=== PATIENT | female | born 1950 | race Caucasian/White ===

== ENCOUNTER 2019-02-21 17:22 | Inpatient (IN) | payer MEDICARE ==
[2019-02-21] MEDS ORDERED: Sodium Chloride 0.9% 1,000 ML IV STA (18:17)
--- NOTE | 2019-02-21 18:52 | ED PDOC ---
HPI: General Adult Time Seen by Provider: 02/21/19 18:06 Chief Complaint (Nursing): Dizziness/Lightheaded Chief Complaint (Provider): Dizziness/Lightheaded History Per: Patient History/Exam Limitations: no limitations Onset/Duration Of Symptoms: Days (x 1 month) Current Symptoms Are (Timing): Still Present Additional Complaint(s): 68 year old female with a history of lupus and HTN presents to the ED for evaluation of one month of dizziness associated with nausea, vomiting, left sided headache and left sided ear pain. Patient was seen at [facility] earlier this month and had a workup, including cardiac tests, that was negative. Additionally, states that she stopped taking her anti-depressants without consulting her doctor last week because it was not helping her. Denies head injury, focal weakness, chest pain and palpitations. PMD: Dr. Rojas Past Medical History Reviewed: Historical Data, Nursing Documentation, Vital Signs Vital Signs: Last Vital Signs Temp 98.5 F 02/21/19 17:25 Pulse 82 02/21/19 17:25 Resp 16 02/21/19 17:25 BP 149/96 H 02/21/19 17:25 Pulse Ox 97 02/21/19 17:25 Primary Care Provider: Shaik Rojas - Medical History PMH: Depression, Gall Bladder Disease, HTN, Hypercholesterolemia, Hypothyroidism, Peripheral Edema, Chronic Kidney Disease (SMALL KIDNEY CYST), Sleep Apnea (QUESTIONABLE TEST RESULTS NOT AVAILABLE YET) - Surgical History Surgical History: Cholecystectomy, Endoscopy - Family History Family History: States: Unknown Family Hx - Home Medications Home Medications: Ambulatory Orders Medication Instructions Recorded Pantoprazole Sodium [Protonix] 40 mg PO DAILY 04/21/15 LORazepam [Ativan] 1 mg PO DAILY PRN 02/21/19 Levothyroxine [Synthroid] 75 mcg PO DAILY 02/21/19 Losartan/Hydrochlorothiazide 1 tab PO DAILY 02/21/19 [Losartan-Hctz 100-12.5 mg Tab] Meclizine [Meclizine*] 25 mg PO Q12 PRN 02/21/19 Ondansetron [Zofran Tab] 4 mg PO Q8 PRN 02/21/19 Pregabalin [Lyrica] 25 mg PO HS PRN 02/21/19 buPROPion XL [Wellbutrin XL] 150 mg PO DAILY 02/21/19 traMADol [Ultram] 50 mg PO Q6 PRN 02/21/19 - Allergies Allergies/Adverse Reactions: Allergies Allergy/AdvReac Type Severity Reaction Status Date / Time No Known Allergies Allergy Verified 02/21/19 17:26 Review of Systems ROS Statement: Except As Marked, All Systems Reviewed And Found Negative ENT: Positive for: Ear Pain (left) Cardiovascular: Negative for: Chest Pain, Palpitations Gastrointestinal: Positive for: Nausea, Vomiting Neurological: Positive for: Headache, Dizziness. Negative for: Weakness Physical Exam - Reviewed Nursing Documentation Reviewed: Yes Vital Signs Reviewed: Yes - Physical Exam Appears: Positive for: No Acute Distress Head Exam: Positive for: ATRAUMATIC, NORMAL INSPECTION, NORMOCEPHALIC Skin: Positive for: Normal Color, Warm, Dry Eye Exam: Positive for: EOMI, Normal appearance, PERRL ENT: Positive for: Normal ENT Inspection, TM Is/Are (clear) Neck: Positive for: Normal, Painless ROM, Supple Cardiovascular/Chest: Positive for: Regular Rate, Rhythm. Negative for: Murmur Respiratory: Positive for: Normal Breath Sounds. Negative for: Respiratory Distress Gastrointestinal/Abdominal: Positive for: Normal Exam, Soft. Negative for: Tenderness Back: Positive for: Normal Inspection. Negative for: L CVA Tenderness, R CVA Tenderness Extremity: Positive for: Normal ROM (x 4). Negative for: Deformity Neurological/Psych: Positive for: Awake, Alert, Normal Tone, Symmetric/Intact Strength, Oriented (x 3). Negative for: Motor/Sensory Deficits, Facial Droop - ECG O2 Sat by Pulse Oximetry: 97 (RA) Pulse Ox Interpretation: Normal Medical Decision Making Medical Decision Makin:17 Impression: headache and dizziness Initial Plan: --Head CT --CMP --CBC --Glucose POC --EKG --Zofran 4 mg IV --NS IV 1,000 mls Scribe Attestation: Documented by Nisha Hill, acting as a scribe for Barrington Julian MD. Provider Scribe Attestation: All medical record entries made by the Scribe were at my direction and personally dictated by me. I have reviewed the chart and agree that the record accurately reflects my personal performance of the history, physical exam, medical decision making, and the department course for this patient. I have also personally directed, reviewed, and agree with the discharge instructions and disposition. Disposition - Clinical Impression Clinical Impression: Dizziness - Patient ED Disposition Is Patient to be Admitted: Transfer of Care - Disposition Disposition: Transfer of Care Disposition Time: 19:00 Condition: FAIR Forms: [employer] (Bangladeshi) Patient Signed Over To: Luiza Cruz (Pending CT labs and reeval)
[2019-02-21 18:57] LABS: BASO % 0.5 % (0.0-2.0); EOS # 0.1 K/uL (0.0-0.7); EOS % 1.8 % (0.0-4.0); HEMOGLOBIN 14.4 g/dL (12.0-16.0); LYMPH # 1.5 K/uL (1.0-4.3); LYMPH % 21.3 % (20.0-40.0); MEAN CELL VOLUME 84.6 fl (81.0-99.0); MEAN CORPUSCULAR HEMOGLOBIN 28.6 pg (27.0-31.0); MEAN CORPUSCULAR HGB CONC 33.9 g/dL (33.0-37.0); MEAN PLATELET VOLUME 6.9 fl (7.2-11.7); MONO # 0.4 K/uL (0.0-0.8); MONO % 6.3 % (0.0-10.0); NEUT # 4.9 K/uL (1.8-7.0); NEUT % 70.1 % (50.0-75.0); RBC 5.04 Mil/uL (3.80-5.20); RED CELL DISTRIBUTION WIDTH 13.1 % (11.5-14.5)
[2019-02-21 19:12] LABS: ALB/GLOB RATIO 1.2 (1.0-2.1); ALBUMIN 4.4 g/dL (3.5-5.0); BLOOD UREA NITROGEN 15 mg/dl (7-17); CALCIUM 9.5 mg/dL (8.4-10.2); GFR NON-AFRICAN AMERICAN > 60
[2019-02-21 19:24] LABS: ALT/SGPT 31 U/L (9-52); AST/SGOT 37 U/L (14-36)
--- NOTE | 2019-02-21 19:31 | ED PDOC ---
- Laboratory Results Result Diagrams: 02/21/19 18:52 02/21/19 18:52 Lab Results: Total Bilirubin 0.7 mg/dl (0.2-1.3) 02/21/19 18:52 AST 37 U/L (14-36) H 02/21/19 18:52 ALT 31 U/L (9-52) 02/21/19 18:52 Alkaline Phosphatase 124 U/L (38-126) 02/21/19 18:52 Total Protein 8.1 G/DL (6.3-8.2) 02/21/19 18:52 Albumin 4.4 g/dL (3.5-5.0) 02/21/19 18:52 Globulin 3.6 gm/dL (2.2-3.9) 02/21/19 18:52 Albumin/Globulin Ratio 1.2 (1.0-2.1) 02/21/19 18:52 - ECG O2 Sat by Pulse Oximetry: 97 (RA) Pulse Ox Interpretation: Normal - Progress Re-evaluation Time: 20:26 Condition: Re-examined, Improved Medical Decision Making Medical Decision Makin:05 Patient signed out to this provider by Dr. Julian pending CT Head, re-evaluation and final disposition. 19:57 FINDINGS: BRAIN: No acute intraparenchymal hemorrhage. No mass lesion. No CT evidence for acute territorial infarct. No midline shift or extra-axial collections. There is mild brain atrophy. VENTRICLES: No hydrocephalus. ORBITS: The orbits are unremarkable. SINUSES AND MASTOIDS: The paranasal sinuses and mastoid air cells are clear. BONES: No fracture. SOFT TISSUES: Unremarkable. IMPRESSION: No acute intracranial abnormality. Mild brain atrophy. Scribe Attestation: Documented by Nisha Hill, acting as a scribe for Luiza Cruz MD. Provider Scribe Attestation: All medical record entries made by the Scribe were at my direction and personally dictated by me. I have reviewed the chart and agree that the record accurately reflects my personal performance of the history, physical exam, medical decision making, and the department course for this patient. I have also personally directed, reviewed, and agree with the discharge instructions and disposition. Disposition Doctor Will See Patient In The: Office Counseled Patient/Family Regarding: Studies Performed, Diagnosis, Need For Follo wup - Clinical Impression Clinical Impression: Dizziness - POA Present On Arrival: None - Disposition Referrals: Donaldo Lopez MD [Medical Doctor] - Disposition: Routine/Home Disposition Time: 20:26 Condition: GOOD Additional Instructions: ANTONIO MICHAEL, thank you for letting us take care of you today. Your provider was Luiza Cruz MD and you were treated for DIZZINESS. The emergency medical care you received today was directed at your acute symptoms. If you were pre scribed any medication, please fill it and take as directed. It may take several days for your symptoms to resolve. Return to the Emergency Department if your symptoms worsen, do not improve, or if you have any other problems. Please contact your doctor or call one of the physicians/clinics you have been referred to that are listed on the Patient Visit Information form that is included in your discharge packet. Bring any paperwork you were given at discharge with you along with any medications you are taking to your follow up visit. Our treatment cannot replace ongoing medical care by a primary care provider outside of the emergency department. Thank you for allowing the [facility] team to be part of your care today. If you had an X-Ray or CT scan: A Radiologist will review the ED reading if any change in treatment is needed we will contact you. If you had a blood, urine, or wound culture: It will take several days for the results, if any change in treatment is needed we will contact you. Instructions: Dizziness, Nonvertigo, (DC) Forms: [employer] (Filipino)
[2019-02-21] MEDS ORDERED: Dextrose 5%/0.45% NS 1,000 ML IV SCH (23:15)
[2019-02-22] MEDS: Levothyroxine 75 MCG TAB PO SCH (06:45)
[2019-02-22] MEDS ORDERED: Gadodiamide 287 MG/ML VIAL (15ML) IV ONE (08:13)
[2019-02-22] MEDS: Pantoprazole 40 mg EC Tab PO SCH (08:14)
--- NOTE | 2019-02-22 08:53 | CT ---
Date of service: 02/21/2019 PROCEDURE: CT HEAD WITHOUT CONTRAST. HISTORY: r/o bleed COMPARISON: 08/04/2010 TECHNIQUE: Axial computed tomography images were obtained through the head/brain without intravenous contrast. Radiation dose: Total exam DLP = 842.81 mGy-cm. This CT exam was performed using one or more of the following dose reduction techniques: Automated exposure control, adjustment of the mA and/or kV according to patient size, and/or use of iterative reconstruction technique. FINDINGS: HEMORRHAGE: No intracranial hemorrhage. BRAIN: No mass effect or edema. Minimal age-appropriate atrophy. No white matter ischemic change. No evidence of acute infarct. VENTRICLES: Unremarkable. No hydrocephalus. CALVARIUM: Unremarkable. PARANASAL SINUSES: Unremarkable as visualized. No significant inflammatory changes. MASTOID AIR CELLS: Unremarkable as visualized. No inflammatory changes. OTHER FINDINGS: None. IMPRESSION: No intracranial mass, hemorrhage or evidence of acute infarct. Mild age-appropriate atrophy. The preliminary findings for this examination were reported by [facility] at 7:52 p.m. on 02/21/2019. There is concurrence of this report with the preliminary findings.
[2019-02-22] MEDS ORDERED: Patient's Own Med (Losartan/Hydrochlorothiazide [Losartan-Hctz 100-12.5 Mg Tab] 1 TAB) PO SCH (09:00)
--- NOTE | 2019-02-22 10:35 | MRI ---
Date of service: 02/22/2019 PROCEDURE: MRI BRAIN WITH AND WITHOUT CONTRAST HISTORY: vertigo COMPARISON: None available. TECHNIQUE: Multiplanar, multisequence MR images of the brain were obtained with and without intravenous contrast enhancement. 15 cc of Omniscan FINDINGS: HEMORRHAGE: None DWI: No evidence of an acute or early subacute infarction. BRAIN PARENCHYMA: No mass,mass effect or edema. No atrophy or chronic microvascular ischemic changes. ENHANCEMENT: No abnormal intracranial enhancement. VENTRICLES: Unremarkable. No hydrocephalus. CRANIUM: Unremarkable. ORBITS: Grossly unremarkable. PARANASAL SINUSES/MASTOIDS: Clear VASCULAR SYSTEM: Skull base flow voids intact. OTHER FINDINGS: None . IMPRESSION: Unremarkable pre and post contrast enhanced MRI of the brain.
--- NOTE | 2019-02-22 14:39 | HP ---
HISTORY OF PRESENT ILLNESS: Ms. Dodge is a 68-year-old female who was admitted via the emergency room because of intractable dizziness and unsteadiness of gait with pain in the left ear for the past several days. She indicates that she has been seen earlier in the [facility] for similar condition including having tests for her heart and all workup was nonrevealing, but symptoms worsened yesterday and she came to the emergency room. She has a history of anxiety with depression and hypothyroidism and has been on tramadol for chronic pain. FAMILY HISTORY: Unremarkable. SOCIAL HISTORY: She does not drink or smoke, lives at home by herself, but has a supportive son. PHYSICAL EXAMINATION: GENERAL: The patient is alert, oriented, feels very dizzy and unable to stand. VITAL SIGNS: Blood pressure 149/96, respiratory rate 16, afebrile, O2 sat 97% on room air, pulse 82. HEENT: Pupils equally reactive to light and accommodation. Mouth shows fair hygiene. NECK: JVP flat. LUNGS: Clear. HEART: Regular. No murmurs or gallops. ABDOMEN: Soft, nontender, no organomegaly. EXTREMITIES: Show no edema or cyanosis. CENTRAL NERVOUS SYSTEM: Remarkable for the patient not being able to stand or walk because of dizziness and complained of severe dizziness and left ear pain. LABORATORY DATA: Reviewed and is unremarkable including CT scan of the brain that is nonrevealing and EKG, official report is pending, but read by me is remarkable for normal sinus rhythm, nonspecific ST-T changes. IMPRESSION: Intractable dizziness (vertigo), one has to rule out central nervous system pathology; left ear discomfort, rule out Meniere's disease. PLAN: Neurology and Ears, Nose, and Throat evaluation. Further therapy will depend on findings. Pedro Donovan MD
[2019-02-22] MEDS: Enoxaparin 40 mg Syringe SC SCH (16:34)
--- NOTE | 2019-02-22 17:34 | CARD ---
APPROVED REPORT Date of service: 02/21/2019 EKG Measurement Heart [id number] <Conclusion> Normal sinus rhythm Nonspecific ST and T wave abnormality Abnormal ECG
[2019-02-22] MEDS ORDERED: Apap-Butalbital-Caffeine 325-50-40mg Tab PO SCH (22:00)
--- NOTE | 2019-02-23 00:08 | CP.PCM.CON ---
History of Present Illness - History of Present Illness History of Present Illness: Neurology consult called by Dr. high Valorie Dodge is a 68 yr old woman who presents wtih severe nausea, vomiting vertigo and malaise for more than 1 month. On exam: Bilateral, upward nystagmus otherwise normal neuro exam Past Patient History - Past Medical History & Family History Past Medical History?: Yes - Past Social History Smoking Status: Never Smoked - CARDIAC Hx Hypercholesterolemia: Yes Hx Hypertension: Yes Hx Peripheral Edema: Yes - PULMONARY Hx Sleep Apnea: Yes (QUESTIONABLE TEST RESULTS NOT AVAILABLE YET) - NEUROLOGICAL Hx Neurological Disorder: Yes Hx Vertigo: Yes (2008) - HEENT Hx HEENT Problems: No - RENAL Hx Chronic Kidney Disease: Yes (SMALL KIDNEY CYST) - ENDOCRINE/METABOLIC Hx Hypothyroidism: Yes - HEMATOLOGICAL/ONCOLOGICAL Hx AIDS: No Hx Human Immunodeficiency Virus (HIV): No - INTEGUMENTARY Hx Dermatological Problems: No - MUSCULOSKELETAL/RHEUMATOLOGICAL Hx Falls: No - GASTROINTESTINAL Hx Gall Bladder Disease: Yes - GENITOURINARY/GYNECOLOGICAL Hx Genitourinary Disorders: Yes Hx Incontinence: Yes - PSYCHIATRIC Hx Substance Use: No - SURGICAL HISTORY Hx Cholecystectomy: Yes - ANESTHESIA Hx Anesthesia: Yes Hx Anesthesia Reactions: No Hx Malignant Hyperthermia: No Meds Allergies/Adverse Reactions: Allergies Allergy/AdvReac Type Severity Reaction Status Date / Time No Known Allergies Allergy Verified 02/21/19 17:26 - Medications Medications: Current Medications Acetaminophen/Butalbital/Caffeine (Fioricet) 1 tab PO Q6 PRN PRN Reason: Headache Enoxaparin Sodium (Lovenox) 40 mg SC DAILY [facility]; Protocol Last Admin: 02/22/19 16:34 Dose: 40 mg Home Med (Bupropion Xl [Wellbutrin Xl]) 150 mg PO DAILY [facility] Hydrochlorothiazide (Microzide) 12.5 mg PO DAILY [facility] Last Admin: 02/22/19 08:14 Dose: 12.5 mg Hydroxychloroquine Sulfate (Plaquenil) 200 mg PO Q12 [facility]; Protocol Last Admin: 02/22/19 22:22 Dose: 200 mg Levothyroxine Sodium (Synthroid) 75 mcg PO DAILY@0630 [facility] Last Admin: 02/22/19 06:45 Dose: 75 mcg Lorazepam (Ativan) 1 mg PO DAILY PRN PRN Reason: Anxiety Losartan Potassium (Cozaar) 100 mg PO DAILY [facility] Last Admin: 02/22/19 08:14 Dose: 100 mg Meclizine HCl (Antivert) 25 mg PO Q8 [facility] Last Admin: 02/22/19 16:33 Dose: 25 mg Ondansetron HCl (Zofran Tab) 4 mg PO Q6 PRN PRN Reason: Nausea/Vomiting Pantoprazole Sodium (Protonix Ec Tab) 40 mg PO DAILY [facility] Last Admin: 02/22/19 08:14 Dose: 40 mg Pregabalin (Lyrica) 25 mg PO HS PRN PRN Reason: Neuropathic pain Tramadol HCl (Ultram) 50 mg PO Q6 PRN PRN Reason: Pain, severe (8-10) Last Admin: 02/22/19 16:33 Dose: 50 mg Results - Vital Signs Recent Vital Signs: Last Vital Signs Temp 97.5 F L 02/22/19 20:12 Pulse 72 02/22/19 20:12 Resp 20 02/22/19 20:12 BP 128/73 02/22/19 20:12 Pulse Ox 96 02/22/19 20:12 - Labs Result Diagrams: 02/21/19 18:52 02/21/19 18:52 Assessment & Plan - Assessment and Plan (Free Text) Assessment: Patient with most likely viral labyrinthitis. However, with her long history of vertigo, would obtain MRI Brain without yady. Dr Peters Neurology
[2019-02-23] MEDS: Apap-Butalbital-Caffeine 325-50-40mg Tab PO PRN (00:40)
--- NOTE | 2019-02-23 03:34 | CON ---
DATE: 02/22/2019 REASON FOR CONSULTATION: Left ear pain. REQUESTING PHYSICIAN: Pedro Donovan MD HISTORY OF PRESENT ILLNESS: This is a 68-year-old female with one month history of dizziness on and off [id number] lasting hours. The latest episode started on Tuesday and has lasted until today, is constant and moderate in intensity. The patient also has left ear pain, mild for days, constant. There is not hearing loss. No tinnitus. PAST MEDICAL HISTORY: As noted in the chart by me. MEDICATIONS: As noted in the chart by me. PHYSICAL EXAMINATION: HEAD: Atraumatic and normocephalic. FACE: Good facial movements bilaterally. CONSTITUTIONAL: Well-fed, well-nourished. COMMUNICATION: Communicates well and appropriately. EXTERNAL NOSE: No masses, no lesions, no erythema, no edema. EARS: There is intact wax noted. No fluid noted behind both TMs. No ear canal edema or discharge noted and limited exams I could do. ORAL CAVITY AND OROPHARYNX: No masses. No lesions. No erythema. No edema. LIPS AND GUMS: No masses, no lesions, no erythema, and no edema. NECK: Supple. THYROID: No thyromegaly. No goiter. LYMPH NODES: Lymphadenopathy of the neck. The patient has pain on palpation on the TMJ and anterior C-spine on both sides. ASSESSMENT: 1. Cervical radiculopathy. 2. Temporomandibular joint dysfunction. 3. Ear pain. 4. Dizziness. 5. Deviated septum. PLAN: The pain in the neck and TMJ is possibly secondary to the lupus which is causing arthritis in those joints. This is causing shooting pain. The patient describes having headaches with dizziness, most likely the dizziness is not coming from ear. The patient is having headaches with it. However, the patient should follow up in the office for ear wax removal followed by VNG. Jarek Nicholas MD
[2019-02-23] MEDS: Levothyroxine 75 MCG TAB PO SCH (10:31)
[2019-02-23] MEDS: Pantoprazole 40 mg EC Tab PO SCH (10:31)
[2019-02-23] MEDS: Enoxaparin 40 mg Syringe SC SCH (10:32)
--- NOTE | 2019-02-23 10:53 | CP.PCM.PN ---
Subjective - Date & Time of Evaluation Date of Evaluation: 02/23/19 Time of Evaluation: 10:49 - Subjective Subjective: Neuro Follow Up Note: Mrs. Dodge was evaluated this afternoon at bedside. She is still c/o dizziness and ear pain on/off. She has been evaluated by ENT who recommends further outpatient testing. She admitted this morning to Dr. Donovan that she was recently diagnosed with lupus. She will be started on pulse steroids today. Otherwise, ROS unremarkable aside from thew above stated. Objective - Vital Signs/Intake and Output Vital Signs (last 24 hours): Temp Pulse Resp BP Pulse Ox 97.9 F 82 20 134/72 95 02/23/19 08:29 02/23/19 10:32 02/23/19 08:29 02/23/19 10:32 02/23/19 08:29 - Medications Medications: Current Medications Acetaminophen/Butalbital/Caffeine (Fioricet) 1 tab PO Q6 PRN PRN Reason: Headache Last Admin: 02/23/19 00:40 Dose: 1 tab Enoxaparin Sodium (Lovenox) 40 mg SC DAILY [facility]; Protocol Last Admin: 02/23/19 10:32 Dose: 40 mg Home Med (Bupropion Xl [Wellbutrin Xl]) 150 mg PO DAILY [facility] Hydrochlorothiazide (Microzide) 12.5 mg PO DAILY [facility] Last Admin: 02/23/19 10:33 Dose: 12.5 mg Hydroxychloroquine Sulfate (Plaquenil) 200 mg PO Q12 [facility]; Protocol Last Admin: 02/23/19 10:31 Dose: 200 mg Levothyroxine Sodium (Synthroid) 75 mcg PO DAILY@0630 [facility] Last Admin: 02/23/19 10:31 Dose: 75 mcg Lorazepam (Ativan) 1 mg PO DAILY PRN PRN Reason: Anxiety Losartan Potassium (Cozaar) 100 mg PO DAILY [facility] Last Admin: 02/23/19 10:32 Dose: 100 mg Meclizine HCl (Antivert) 25 mg PO Q8 [facility] Last Admin: 02/23/19 10:30 Dose: 25 mg Ondansetron HCl (Zofran Tab) 4 mg PO Q6 PRN PRN Reason: Nausea/Vomiting Pantoprazole Sodium (Protonix Ec Tab) 40 mg PO DAILY [facility] Last Admin: 02/23/19 10:31 Dose: 40 mg Pregabalin (Lyrica) 25 mg PO HS PRN PRN Reason: Neuropathic pain Tramadol HCl (Ultram) 50 mg PO Q6 PRN PRN Reason: Pain, severe (8-10) Last Admin: 02/22/19 16:33 Dose: 50 mg - Labs Labs: 02/21/19 18:52 02/21/19 18:52 - Constitutional Appears: Well, Non-toxic - Head Exam Head Exam: ATRAUMATIC, NORMAL INSPECTION, NORMOCEPHALIC - Eye Exam Eye Exam: EOMI, Normal appearance, PERRL. absent: Nystagmus Pupil Exam: NORMAL ACCOMODATION, PERRL - ENT Exam ENT Exam: Mucous Membranes Moist - Neck Exam Neck Exam: Full ROM, Normal Inspection - Respiratory Exam Respiratory Exam: NORMAL BREATHING PATTERN - Extremities Exam Extremities Exam: Full ROM. absent: Calf Tenderness, Pedal Edema - Neurological Exam Neurological Exam: Alert, Awake, CN II-XII Intact, Oriented x3, Reflexes Normal Neuro motor strength exam: Left Upper Extremity: 5, Right Upper Extremity: 5, Left Lower Extremity: 5, Right Lower Extremity: 5 - Psychiatric Exam Psychiatric exam: Normal Affect, Normal Mood - Skin Skin Exam: Normal Color Assessment and Plan (1) Vertigo Assessment & Plan: Imaging reviewed: -Brain MRI with and without contrast (02/22/19): Unremarkable pre and post contrast enhanced MRI of the brain. -CT Head (02/21/19): No intracranial mass, hemorrhage or evidence of acute infarc t. Mild age-appropriate atrophy. -Pulse steroids per primary team. -Continue Meclizine prn upon d/c. -Follow up outpatient with ENT for recommended VNG study and cerumen removal. -May follow up outpatient with neuro if symptoms don't resolve after further ENT testing. -No further neuro recommendations at this time. Reconsult prn. Thank you for this consultation. Yaquelin Alvarado, DNP, COMPUTER SYSTEMS ADMINISTRATOR d/w Dr. Peters Status: Acute
--- NOTE | 2019-02-23 12:08 | CP.PCM.PN ---
Subjective - Date & Time of Evaluation Date of Evaluation: 02/23/19 Time of Evaluation: 12:11 - Subjective Subjective: STILL C/O DIZZINESS AND L EAR PAIN WITH HEADACHES AND PHOTOPHOBIA NOW OFFERS HX OF NEW ONSET LUPUS Objective - Vital Signs/Intake and Output Vital Signs (last 24 hours): Temp Pulse Resp BP Pulse Ox 97.9 F 82 20 134/72 95 02/23/19 08:29 02/23/19 10:32 02/23/19 08:29 02/23/19 10:32 02/23/19 08:29 - Medications Medications: Current Medications Acetaminophen/Butalbital/Caffeine (Fioricet) 1 tab PO Q6 PRN PRN Reason: Headache Last Admin: 02/23/19 00:40 Dose: 1 tab Bupropion HCl (Wellbutrin Sr 150 Mg) 150 mg PO DAILY [facility] Enoxaparin Sodium (Lovenox) 40 mg SC DAILY [facility]; Protocol Last Admin: 02/23/19 10:32 Dose: 40 mg Hydrochlorothiazide (Microzide) 12.5 mg PO DAILY [facility] Last Admin: 02/23/19 10:33 Dose: 12.5 mg Hydroxychloroquine Sulfate (Plaquenil) 200 mg PO Q12 [facility]; Protocol Last Admin: 02/23/19 10:31 Dose: 200 mg Levothyroxine Sodium (Synthroid) 75 mcg PO DAILY@0630 [facility] Last Admin: 02/23/19 10:31 Dose: 75 mcg Lorazepam (Ativan) 1 mg PO DAILY PRN PRN Reason: Anxiety Losartan Potassium (Cozaar) 100 mg PO DAILY [facility] Last Admin: 02/23/19 10:32 Dose: 100 mg Meclizine HCl (Antivert) 25 mg PO Q8 [facility] Last Admin: 02/23/19 10:30 Dose: 25 mg Ondansetron HCl (Zofran Tab) 4 mg PO Q6 PRN PRN Reason: Nausea/Vomiting Pantoprazole Sodium (Protonix Ec Tab) 40 mg PO DAILY [facility] Last Admin: 02/23/19 10:31 Dose: 40 mg Pregabalin (Lyrica) 25 mg PO HS PRN PRN Reason: Neuropathic pain Tramadol HCl (Ultram) 50 mg PO Q6 PRN PRN Reason: Pain, severe (8-10) Last Admin: 02/22/19 16:33 Dose: 50 mg - Labs Labs: 02/21/19 18:52 02/21/19 18:52 - Constitutional Appears: In Acute Distress - Head Exam Head Exam: ATRAUMATIC, NORMAL INSPECTION, NORMOCEPHALIC - Eye Exam Eye Exam: EOMI, Normal appearance, PERRL Pupil Exam: NORMAL ACCOMODATION, PERRL - ENT Exam ENT Exam: Mucous Membranes Moist, Normal Exam - Neck Exam Neck Exam: Full ROM, Normal Inspection. absent: Lymphadenopathy - Respiratory Exam Respiratory Exam: Clear to Ausculation Bilateral, NORMAL BREATHING PATTERN - Cardiovascular Exam Cardiovascular Exam: REGULAR RHYTHM, +S1, +S2. absent: Murmur - GI/Abdominal Exam GI & Abdominal Exam: Soft, Normal Bowel Sounds. absent: Tenderness - Rectal Exam Rectal Exam: NORMAL INSPECTION - Extremities Exam Extremities Exam: Full ROM, Normal Capillary Refill, Normal Inspection. absent: Joint Swelling, Pedal Edema - Back Exam Back Exam: NORMAL INSPECTION - Neurological Exam Neurological Exam: Alert, Awake, CN II-XII Intact, Normal Gait, Oriented x3 - Psychiatric Exam Psychiatric exam: Normal Affect, Normal Mood - Skin Skin Exam: Dry, Intact, Normal Color, Warm Assessment and Plan - Assessment and Plan (Free Text) Assessment: ACUTE EXAC OF LUPUS INTRACTABLE DIZZINESS MIGRAINE HEADACHES Plan: GIVE IV PULSE STEROID RX FIORECET,PRN PT/OT NEURO AND ENT EVAL APPRECIATED
[2019-02-23] MEDS ORDERED: methylPREDNISolone 1 GM in Sodium Chloride 0.9% 250 ML IV SCH (12:15)
[2019-02-23] MEDS: buPROPion SR 150 MG TABLET PO SCH (13:53)
[2019-02-24] MEDS: Levothyroxine 75 MCG TAB PO SCH (05:56)
[2019-02-24] MEDS: Apap-Butalbital-Caffeine 325-50-40mg Tab PO PRN ×2 (09:49→16:31)
[2019-02-24] MEDS: buPROPion SR 150 MG TABLET PO SCH ×2 (09:50→10:23)
[2019-02-24] MEDS: Enoxaparin 40 mg Syringe SC SCH (09:51)
[2019-02-24] MEDS: Pantoprazole 40 mg EC Tab PO SCH (09:52)
--- NOTE | 2019-02-24 10:54 | CP.PCM.PN ---
Subjective - Date & Time of Evaluation Date of Evaluation: 02/24/19 Time of Evaluation: 10:58 - Subjective Subjective: DIZZINESS/HEADACHES AND UNSTEADY GAIT IMPROVING WITH IV STEROIDS WANTS TO STOP BP MEDS AND WELLBUTRYN WANTS TO SEE A PSYCHIATRIST BECAUSE OF DEPRESSION C/O CONSTIPATION Objective - Vital Signs/Intake and Output Vital Signs (last 24 hours): Temp Pulse Resp BP Pulse Ox 97.7 F 73 18 136/79 95 02/24/19 07:58 02/24/19 07:58 02/24/19 07:58 02/24/19 07:58 02/24/19 07:58 - Medications Medications: Current Medications Acetaminophen/Butalbital/Caffeine (Fioricet) 1 tab PO Q6 PRN PRN Reason: Headache Last Admin: 02/24/19 09:49 Dose: 1 tab Amlodipine Besylate (Norvasc) 2.5 mg PO DAILY [facility] Enoxaparin Sodium (Lovenox) 40 mg SC DAILY [facility]; Protocol Last Admin: 02/24/19 09:51 Dose: 40 mg Famotidine (Pepcid) 20 mg IVP Q12 [facility] Last Admin: 02/24/19 10:06 Dose: 20 mg Hydroxychloroquine Sulfate (Plaquenil) 200 mg PO Q12 [facility]; Protocol Last Admin: 02/24/19 09:51 Dose: 200 mg Methylprednisolone 1 gm/ (Sodium Chloride) 250 mls @ 62.5 mls/hr IV DAILY@1700 [facility] Levothyroxine Sodium (Synthroid) 75 mcg PO DAILY@0630 [facility] Last Admin: 02/24/19 05:56 Dose: 75 mcg Lorazepam (Ativan) 1 mg PO DAILY PRN PRN Reason: Anxiety Losartan Potassium (Cozaar) 100 mg PO DAILY [facility] Last Admin: 02/24/19 10:22 Dose: Not Given Meclizine HCl (Antivert) 25 mg PO Q8 [facility] Last Admin: 02/24/19 09:50 Dose: 25 mg Ondansetron HCl (Zofran Tab) 4 mg PO Q6 PRN PRN Reason: Nausea/Vomiting Pregabalin (Lyrica) 25 mg PO HS PRN PRN Reason: Neuropathic pain Tramadol HCl (Ultram) 50 mg PO Q6 PRN PRN Reason: Pain, severe (8-10) Last Admin: 02/23/19 17:15 Dose: 50 mg - Labs Labs: 02/21/19 18:52 02/21/19 18:52 - Constitutional Appears: Chronically Ill - Head Exam Head Exam: ATRAUMATIC, NORMAL INSPECTION, NORMOCEPHALIC - Eye Exam Eye Exam: EOMI, Normal appearance, PERRL Pupil Exam: NORMAL ACCOMODATION, PERRL - ENT Exam ENT Exam: Mucous Membranes Moist, Normal Exam - Neck Exam Neck Exam: Full ROM, Normal Inspection. absent: Lymphadenopathy - Respiratory Exam Respiratory Exam: Clear to Ausculation Bilateral, NORMAL BREATHING PATTERN - Cardiovascular Exam Cardiovascular Exam: REGULAR RHYTHM, +S1, +S2. absent: Murmur - GI/Abdominal Exam GI & Abdominal Exam: Soft, Normal Bowel Sounds. absent: Tenderness - Rectal Exam Rectal Exam: NORMAL INSPECTION - Extremities Exam Extremities Exam: Full ROM, Normal Capillary Refill, Normal Inspection. absent: Joint Swelling, Pedal Edema - Back Exam Back Exam: NORMAL INSPECTION - Neurological Exam Neurological Exam: Abnormal Gait, Alert, Awake, CN II-XII Intact, Oriented x3 - Psychiatric Exam Psychiatric exam: Normal Affect, Normal Mood - Skin Skin Exam: Dry, Intact, Normal Color, Warm Assessment and Plan - Assessment and Plan (Free Text) Assessment: ACUTE EXAC OF SLE HTN CONSTIPATION Plan: GIVE ONE MORE DAY OF IV STEROIDS LUPUS PANEL ORDERED LACTULOSE FOR CONSTIPATION INCREASE ACTIVITY D/C IN AM IF STABLE
[2019-02-24] MEDS: Insulin Regular 100 units/ml SC SCH ×2 (16:27→22:00)
[2019-02-24] MEDS ORDERED: methylPREDNISolone 1 GM in Sodium Chloride 0.9% 250 ML IV SCH (17:00)
[2019-02-25] MEDS: Levothyroxine 75 MCG TAB PO SCH (06:08)
[2019-02-25] MEDS: Enoxaparin 40 mg Syringe SC SCH (08:11)
[2019-02-25] MEDS: Insulin Regular 100 units/ml SC SCH ×2 (08:14→11:31)
[2019-02-25] MEDS: Apap-Butalbital-Caffeine 325-50-40mg Tab PO PRN (08:15)
[2019-02-25 08:25] VITALS: TEMP 97.6
[2019-02-25] MEDS ORDERED: Magnesium Citrate Oral SOL (300 ml) PO ONE (10:24)
--- NOTE | 2019-02-25 10:45 | CP.PCM.DIS ---
Provider - Provider Date of Admission: 02/23/19 12:12 Attending physician: Pedro Donovan MD Consults: 02/22/19 06:00 Neurology Consult Routine Comment: Consulting Provider: Viviana Peters Consulting Physician: Viviana Peters Reason for Consult: vertigo 02/22/19 09:13 Otolaryngology Consult Routine Consulting Provider: Jarek Nicholas Consulting Physician: Jarek Nicholas Reason for Consult: L EAR DISCOMFORT WITH DIZZINESS 02/24/19 11:05 Psychiatry Consult Routine Comment: Consulting Provider: Mirna Tobar Consulting Physician: Mirna Tobar Reason for Consult: DEPRESSION Time Spent in preparation of Discharge (in minutes): 30 Diagnosis - Discharge Diagnosis (1) Lupus (systemic lupus erythematosus) Status: Acute (2) Hypertension Status: Acute (3) Dizziness Status: Acute (4) Vertigo Status: Acute (5) Hypothyroidism Status: Acute Hospital Course - Lab Results Lab Results: Most Recent Lab Values WBC 7.0 K/uL (4.8-10.8) 02/21/19 18:52 RBC 5.04 Mil/uL (3.80-5.20) 02/21/19 18:52 Hgb 14.4 g/dL (12.0-16.0) 02/21/19 18:52 Hct 42.7 % (34.0-47.0) 02/21/19 18:52 MCV 84.6 fl (81.0-99.0) 02/21/19 18:52 MCH 28.6 pg (27.0-31.0) 02/21/19 18:52 MCHC 33.9 g/dL (33.0-37.0) 02/21/19 18:52 RDW 13.1 % (11.5-14.5) 02/21/19 18:52 Plt Count 272 K/uL (130-400) 02/21/19 18:52 MPV 6.9 fl (7.2-11.7) L 02/21/19 18:52 Neut % (Auto) 70.1 % (50.0-75.0) 02/21/19 18:52 Lymph % (Auto) 21.3 % (20.0-40.0) 02/21/19 18:52 Dubois % (Auto) 6.3 % (0.0-10.0) 02/21/19 18:52 Eos % (Auto) 1.8 % (0.0-4.0) 02/21/19 18:52 Baso % (Auto) 0.5 % (0.0-2.0) 02/21/19 18:52 Neut # (Auto) 4.9 K/uL (1.8-7.0) 02/21/19 18:52 Lymph # (Auto) 1.5 K/uL (1.0-4.3) 02/21/19 18:52 Dubois # (Auto) 0.4 K/uL (0.0-0.8) 02/21/19 18:52 Eos # (Auto) 0.1 K/uL (0.0-0.7) 02/21/19 18:52 Baso # (Auto) 0.0 K/uL (0.0-0.2) 02/21/19 18:52 Sodium 136 mmol/l (132-148) 02/21/19 18:52 Potassium 4.3 MMOL/L (3.6-5.0) 02/21/19 18:52 Chloride 101 mmol/L (98-107) 02/21/19 18:52 Carbon Dioxide 23 mmol/L (22-30) 02/21/19 18:52 Anion Gap 16 (10-20) 02/21/19 18:52 BUN 15 mg/dl (7-17) 02/21/19 18:52 Creatinine 0.6 mg/dl (0.7-1.2) L 02/21/19 18:52 Est GFR ( Amer) > 60 02/21/19 18:52 Est GFR (Non-Af Amer) > 60 02/21/19 18:52 POC Glucose (mg/dL) 164 mg/dL (65-110) H 02/25/19 06:12 Random Glucose 103 mg/dL (65-105) 02/21/19 18:52 Calcium 9.5 mg/dL (8.4-10.2) 02/21/19 18:52 Total Bilirubin 0.7 mg/dl (0.2-1.3) 02/21/19 18:52 AST 37 U/L (14-36) H 02/21/19 18:52 ALT 31 U/L (9-52) 02/21/19 18:52 Alkaline Phosphatase 124 U/L (38-126) 02/21/19 18:52 Total Protein 8.1 G/DL (6.3-8.2) 02/21/19 18:52 Albumin 4.4 g/dL (3.5-5.0) 02/21/19 18:52 Globulin 3.6 gm/dL (2.2-3.9) 02/21/19 18:52 Albumin/Globulin Ratio 1.2 (1.0-2.1) 02/21/19 18:52 Thyroxine (T4) 16.0 ug/dl (5.5-11.0) H 02/24/19 01:00 TSH 3rd Generation 0.46 mIU/ML (0.46-4.68) 02/24/19 01:00 - Hospital Course Hospital Course: 68 yr old female admitted with intractable dizziness and vertigo.she was unable to sit,stand or get out of bed or ambulate. She has a history of lupus and all workup was non-revealing. 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 Discharge Exam - Head Exam Head Exam: ATRAUMATIC, NORMAL INSPECTION, NORMOCEPHALIC - Eye Exam Eye Exam: EOMI, Normal appearance, PERRL Pupil Exam: NORMAL ACCOMODATION, PERRL - GI/Abdominal Exam GI & Abdominal Exam: Normal Bowel Sounds - Rectal Exam Rectal Exam: NORMAL INSPECTION - Neurological Exam Neurological exam: Abnormal Gait, Alert, CN II-XII Intact, Oriented x3, Reflexes Normal Additional comments: dizziness improved - Psychiatric Exam Psychiatric exam: Normal Affect, Normal Mood - Skin Skin Exam: Dry, Intact, Normal Color, Warm Discharge Plan - Follow Up Plan Condition: GOOD Disposition: HOME/ ROUTINE Instructions: Dizziness, Nonvertigo, (DC) Additional Instructions: ANTONIO MICHAEL, thank you for letting us take care of you today. Your provider was Luiza Cruz MD and you were treated for DIZZINESS. The emergency medical care you received today was directed at your acute symptoms. If you were prescribed any medication, please fill it and take as directed. It may take several days for your symptoms to resolve. Return to the Emergency Department if your symptoms worsen, do not improve, or if you have any other problems. Please contact your doctor or call one of the physicians/clinics you have been referred to that are listed on the Patient Visit Information form that is included in your discharge packet. Bring any paperwork you were given at [facility] with you along with any medications you are taking to your follow up visit. Our treatment cannot replace ongoing medical care by a primary care provider outside of the emergency department. Thank you for allowing the [facility] team to be part of your care today. If you had an X-Ray or CT scan: A Radiologist will review the ED reading if any change in treatment is needed we will contact you. If you had a blood, urine, or wound culture: It will take several days for the results, if any change in treatment is needed we will contact you. Referrals: Donaldo Lopez MD [Medical Doctor] -
--- NOTE | 2019-02-25 11:15 | CP.PCM.CON ---
History of Present Illness - History of Present Illness History of Present Illness: consult requested for depression pt is a 68 year old female with a history of lupus and HTN , pt also has history of depression but no history of previous psychiatric hospitalizations ,has been on cymbalta which was recently changed by psychiatrist to wellbutrin, pt had poor response to wellbutrin with increased headaches and stopped the medicine a week ago on evaluation pt was tearful , reported she is feeling sad because of her current medical problems resulting in limited mobility and for feeling lonely as both her sons live far, pt reported episodes of increased anxiety and crying episodes, no current changes in sleep or appetite, denied suicidal or homicidal ideation denied perceptual disturbances, alert awake, ox3 Past Patient History - Past Medical History & Family History Past Medical History?: Yes - Past Social History Smoking Status: Never Smoked - CARDIAC Hx Hypercholesterolemia: Yes Hx Hypertension: Yes Hx Peripheral Edema: Yes - PULMONARY Hx Sleep Apnea: Yes (QUESTIONABLE TEST RESULTS NOT AVAILABLE YET) - NEUROLOGICAL Hx Neurological Disorder: Yes Hx Vertigo: Yes (2008) - HEENT Hx HEENT Problems: No - RENAL Hx Chronic Kidney Disease: Yes (SMALL KIDNEY CYST) - ENDOCRINE/METABOLIC Hx Hypothyroidism: Yes - HEMATOLOGICAL/ONCOLOGICAL Hx AIDS: No Hx Human Immunodeficiency Virus (HIV): No - INTEGUMENTARY Hx Dermatological Problems: No - MUSCULOSKELETAL/RHEUMATOLOGICAL Hx Falls: No - GASTROINTESTINAL Hx Gall Bladder Disease: Yes - GENITOURINARY/GYNECOLOGICAL Hx Genitourinary Disorders: Yes Hx Incontinence: Yes - PSYCHIATRIC Hx Substance Use: No - SURGICAL HISTORY Hx Cholecystectomy: Yes - ANESTHESIA Hx Anesthesia: Yes Hx Anesthesia Reactions: No Hx Malignant Hyperthermia: No Meds Home Medications: Home Medication List Medication Instructions Recorded Confirmed Type amLODIPine [Norvasc] 2.5 mg PO DAILY #30 tab 02/25/19 Rx Allergies/Adverse Reactions: Allergies Allergy/AdvReac Type Severity Reaction Status Date / Time No Known Allergies Allergy Verified 02/21/19 17:26 - Medications Medications: Current Medications Acetaminophen/Butalbital/Caffeine (Fioricet) 1 tab PO Q6 PRN PRN Reason: Headache Last Admin: 02/25/19 08:15 Dose: 1 tab Amlodipine Besylate (Norvasc) 2.5 mg PO DAILY [facility] Last Admin: 02/25/19 08:12 Dose: 2.5 mg Enoxaparin Sodium (Lovenox) 40 mg SC DAILY [facility]; Protocol Last Admin: 02/25/19 08:11 Dose: 40 mg Famotidine (Pepcid) 20 mg IVP Q12 [facility] Last Admin: 02/25/19 08:17 Dose: 20 mg Hydroxychloroquine Sulfate (Plaquenil) 200 mg PO Q12 [facility]; Protocol Last Admin: 02/25/19 08:13 Dose: 200 mg Methylprednisolone 1 gm/ (Sodium Chloride) 250 mls @ 62.5 mls/hr IV DAILY@1700 [facility] Last Admin: 02/24/19 16:26 Dose: 62.5 mls/hr Insulin Human Regular (Humulin R) 0 units SC ACCU-CHECK [facility]; Protocol Last Admin: 02/25/19 08:14 Dose: 1 unit Levothyroxine Sodium (Synthroid) 75 mcg PO DAILY@0630 [facility] [place] Last Admin: 02/25/19 06:08 Dose: 75 mcg Lorazepam (Ativan) 1 mg PO DAILY PRN PRN Reason: Anxiety Losartan Potassium (Cozaar) 100 mg PO DAILY [facility] [place] Last Admin: 02/25/19 08:13 Dose: Not Given Meclizine HCl (Antivert) 25 mg PO Q8 [facility] [place] Last Admin: 02/25/19 08:11 Dose: 25 mg Ondansetron HCl (Zofran Tab) 4 mg PO Q6 PRN PRN Reason: Nausea/Vomiting Pregabalin (Lyrica) 25 mg PO HS PRN PRN Reason: Neuropathic pain Tramadol HCl (Ultram) 50 mg PO Q6 PRN PRN Reason: Pain, severe (8-10) Last Admin: 02/23/19 17:15 Dose: 50 mg Results - Vital Signs Recent Vital Signs: Last Vital Signs Temp 97.6 F 02/25/19 08:25 Pulse 67 02/25/19 08:25 Resp 20 02/25/19 08:25 BP 155/86 H 02/25/19 08:25 Pulse Ox 95 02/25/19 08:25 - Labs Result Diagrams: 02/21/19 18:52 02/21/19 18:52 Labs: Laboratory Results - last 24 hr 02/24/19 02/24/19 02/24/19 01:00 16:22 21:33 POC Glucose (mg/dL) 119 H 156 H Thyroxine (T4) 16.0 H TSH 3rd Generation 0.46 02/25/19 06:12 POC Glucose (mg/dL) 164 H Thyroxine (T4) TSH 3rd Generation Assessment & Plan - Assessment and Plan (Free Text) Assessment: 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
[2019-02-25 16:09] VITALS: BP 106/69; PULSE 72; RESP 18; O2SAT 97
== END 2019-02-25 16:47 | disposition home or self-care (01) | DRG 547 ==
LOC: H.ER 17:22 → H.ERHOLD 20:37 → H.TEL 22:38 → OBSVTOIN 02-23 12:12
PROVIDERS: ADMIT Internal Medicine Pulmonary Disease; ATTEND Internal Medicine Pulmonary Disease
DX: M32.9 Systemic lupus erythematosus, unspecified (principal); F06.31 Mood disorder due to known physiological condition with depressive features; H83.02 Labyrinthitis, left ear; G43.909 Migraine, unspecified, not intractable, without status migrainosus; M26.69 Other specified disorders of temporomandibular joint; M54.12 Radiculopathy, cervical region; H55.09 Other forms of nystagmus; I10 Essential (primary) hypertension; E03.9 Hypothyroidism, unspecified; K59.00 Constipation, unspecified; F41.8 Other specified anxiety disorders; G89.29 Other chronic pain; J34.2 Deviated nasal septum; E78.00 Pure hypercholesterolemia, unspecified